=== PATIENT | female | born 1945 | race Caucasian/White ===

== ENCOUNTER 2019-02-05 08:14 | Emergency (ER) | payer MEDICARE, OTHER ==
[~2019-02-05] VITALS: Ht 152.4 cm; Wt 61.8 kg
[2019-02-05 09:07] LABS: BASOPHILS # (AUTO) 0.1 X10'3 (0-0.2); BASOPHILS % (AUTO) 0.9 % (0-1); EOSINOPHILS # (AUTO) 0.1 X10'3 (0-0.9); EOSINOPHILS % (AUTO) 1.5 % (0-6); HEMATOCRIT 43.7 % (35.0-45.0); HEMOGLOBIN 14.9 g/dl (12.0-16.0); LYMPHOCYTES # (AUTO) 1.1 X10'3 (1.1-4.8); LYMPHOCYTES % (AUTO) 13.6 % (21-51); MEAN CORPUSCULAR HEMOGLOBIN 29.5 PG (27.0-31.0); MEAN CORPUSCULAR HGB CONC 34.1 g/dL (33.0-36.5); MEAN CORPUSCULAR VOLUME 86.4 FL (78-98); MEAN PLATELET VOLUME 8.6 FL (7.4-10.4); MONOCYTES # (AUTO) 0.6 X10'3 (0-0.9); MONOCYTES % (AUTO) 7.8 % (2-12); NEUTROPHILS # (AUTO) 6.2 X10'3 (1.8-7.7); NEUTROPHILS % (AUTO) 76.2 % (42-75); PLATELET COUNT 266 X10'3 (140-440); RED BLOOD COUNT 5.06 X10'6 (4.20-5.60); RED CELL DISTRIBUTION WIDTH 13.5 % (11.5-14.5); WHITE BLOOD COUNT 8.1 X10'3 (4.5-11.0)
[2019-02-05 09:21] LABS: PARTIAL THROMBOPLASTIN TIME 25 SECONDS (22-32)
[2019-02-05 09:23] LABS: ALANINE AMINOTRANSFERASE 32 U/L (12-78); ALBUMIN 3.8 G/DL (3.4-5.0); ALBUMIN/GLOBULIN RATIO 1.1 (1.1-1.5); ALKALINE PHOSPHATASE 100 IU/L (46-116); ANION GAP 10 (8-16); ASPARTATE AMINO TRANSFERASE 15 U/L (10-37); BILIRUBIN,TOTAL 0.3 MG/DL (0.1-1.0); BLOOD UREA NITROGEN 15 MG/DL (7-18); BUN/CREATININE RATIO 20.8 (6.6-38.0); CALCIUM 8.9 MG/DL (8.5-10.1); CHLORIDE 107 MMOL/L (99-107); CREATININE 0.72 MG/DL (0.40-0.90); GLUCOSE 91 MG/DL (70-104); POTASSIUM 3.6 MMOL/L (3.5-5.1); SODIUM 146 MMOL/L (135-145); TOTAL CARBON DIOXIDE 29.5 MMOL/L (24-32); TOTAL PROTEIN 7.3 G/DL (6.4-8.2); eGFR 80 ML/MIN
[2019-02-05 09:47] VITALS: BP 130/63
== END 2019-02-05 09:49 | disposition home or self-care (01) ==
LOC: ER 08:15
DX: I10 Essential (primary) hypertension (principal); E11.9 Type 2 diabetes mellitus without complications; Z98.890 Other specified postprocedural states; Z88.2 Allergy status to sulfonamides; Z88.1 Allergy status to other antibiotic agents; Z88.7 Allergy status to serum and vaccine
CPT/HCPCS: 36415; 71045; 80053; 83880; 84484; 85025; 85610; 85730; 93005; 99284

== ENCOUNTER 2019-11-08 07:02 | Day surgery (SDC) | payer MEDICARE, OTHER ==
[2019-11-07 08:15] LABS: BASOPHILS # (AUTO) 0.1 X10'3 (0-0.2); BASOPHILS % (AUTO) 1.2 % (0-1); EOSINOPHILS # (AUTO) 0.2 X10'3 (0-0.9); HEMATOCRIT 44.5 % (35.0-45.0); HEMOGLOBIN 14.5 g/dl (12.0-16.0); LYMPHOCYTES # (AUTO) 0.9 X10'3 (1.1-4.8); LYMPHOCYTES % (AUTO) 17.5 % (21-51); MEAN CORPUSCULAR HEMOGLOBIN 28.9 PG (27.0-31.0); MEAN CORPUSCULAR HGB CONC 32.6 g/dL (33.0-36.5); MEAN CORPUSCULAR VOLUME 88.4 FL (78-98); MEAN PLATELET VOLUME 9.2 FL (7.4-10.4); MONOCYTES # (AUTO) 0.4 X10'3 (0-0.9); MONOCYTES % (AUTO) 7.5 % (2-12); NEUTROPHILS # (AUTO) 3.6 X10'3 (1.8-7.7); NEUTROPHILS % (AUTO) 70.8 % (42-75); PLATELET COUNT 264 X10'3 (140-440); RED BLOOD COUNT 5.03 X10'6 (4.20-5.60); RED CELL DISTRIBUTION WIDTH 13.3 % (11.5-14.5); WHITE BLOOD COUNT 5.1 X10'3 (4.5-11.0)
[2019-11-07 08:19] LABS: ALBUMIN 4.1 G/DL (3.4-5.0); ANION GAP 4 (8-16); BLOOD UREA NITROGEN 14 MG/DL (7-18); BUN/CREATININE RATIO 17.9 (6.6-38.0); CALCIUM 9.7 MG/DL (8.5-10.1); CHLORIDE 108 MMOL/L (99-107); CREATININE 0.78 MG/DL (0.40-0.90); GLUCOSE 77 MG/DL (70-104); POTASSIUM 4.1 MMOL/L (3.5-5.1); SODIUM 144 MMOL/L (135-145); TOTAL CARBON DIOXIDE 32.4 MMOL/L (24-32); eGFR 73 ML/MIN
[2019-11-07 08:23] LABS: PARTIAL THROMBOPLASTIN TIME 25 SECONDS (22-32)
[~2019-11-08] VITALS: Ht 160 cm; Wt 63.9 kg
[2019-11-08] VITALS (13 sets, daily range): BP systolic 94–168; BP diastolic 53–84
[2019-11-08] MEDS ORDERED: diphenhydrAMINE 25mg capsule PO PRN (07:25)
[2019-11-08] MEDS ORDERED: LIDOcaine/PRILOcaine 5gm cream TP ONE (07:25)
[2019-11-08] MEDS ORDERED: LORazepam 0.5 MG tablet PO PRN (07:25)
[2019-11-08] MEDS ORDERED: normal saline 1,000 ML IV SCH (07:25)
[2019-11-08] MEDS ORDERED: LISI30TA4 PO (08:34)
[2019-11-08] MEDS ORDERED: TURMERIC PO (08:34)
[2019-11-08] MEDS ORDERED: VITAMIN B12 PO (08:34)
[2019-11-08] MEDS ORDERED: MAGN250T11 PO (08:34)
[2019-11-08] MEDS ORDERED: CHOL200074 PO (08:34)
[2019-11-08] MEDS ORDERED: OMEG1CAP46 PO (08:34)
[2019-11-08] MEDS ORDERED: PREBIOTIC PO (08:34)
[2019-11-08] MEDS ORDERED: MULT-1085 PO (08:34)
[2019-11-08] MEDS ORDERED: nitroGLYCERIN-Tridil 50MG/D5W 250 ML IV ONE (10:03)
[2019-11-08] MEDS ORDERED: fentaNYL/PF 50MCG/1 ML 2ML syringe ONE (10:04)
[2019-11-08] MEDS ORDERED: iohexol 350 MG/ML 50ML vial IV ONE (10:04)
[2019-11-08] MEDS ORDERED: heparin 1,000unit/ml 10ml vial 10 ML ONE ×2 (10:04→11:21)
[2019-11-08] MEDS ORDERED: iohexol 350MG/ML 100ml bottle IV ONE ×3 (10:04→12:01)
[2019-11-08] MEDS ORDERED: verapamil 2.5 mg/ml inj IV ONE (10:04)
[2019-11-08] MEDS ORDERED: LIDOcaine 1% (10mg/ml)w/preservative injection 20ml MDV ONE (10:04)
[2019-11-08] MEDS ORDERED: midazolam 2 mg/2 ml injection ONE (10:04)
[2019-11-08] MEDS ORDERED: heparin 25,000 UNIT/250ml bag 250 ML IV ONE (11:21)
[2019-11-08] MEDS ORDERED: clopidogrel 300mg tablet ONE (12:16)
[2019-11-08] MEDS ORDERED: heparin 25,000 UNIT/250ml bag 250 ML IV SCH (12:58)
[2019-11-08] MEDS ORDERED: HYDROcodone/acetaminophen 5mg/325mg tablet PO PRN (13:00)
[2019-11-08] MEDS ORDERED: heparin 10,000 units/1 ML INJ IV PRN (13:00)
[2019-11-08] MEDS ORDERED: HYDROcodone/acetaminophen 10/325mg tab PO PRN (13:00)
[2019-11-08] MEDS ORDERED: acetaminophen 325mg tablet PO PRN (13:00)
--- NOTE | 2019-11-08 13:45 | NUR ---
Heparin turned off as ordered. Addendum: 11/08/19 at 1458 by Tod Bravo RN Amended: Links added.
[2019-11-08 15:21] LABS: ISTAT HGB ART 13.3 g/dl (12.0-16.0); ISTAT Hct ART 39 %PCV (35-48); ISTAT O2 SATURATION ARTERIAL 95 % (95-98); ISTAT SOURCE ART
== END 2019-11-08 20:00 | disposition home or self-care (01) ==
LOC: SSTAY O 07:02
PROVIDERS: ATTEND Internal Medicine Cardiovascular Disease
DX: R94.39 Abnormal result of other cardiovascular function study (principal); I25.10 Atherosclerotic heart disease of native coronary artery without angina pectoris; I10 Essential (primary) hypertension; E78.5 Hyperlipidemia, unspecified; K21.9 Gastro-esophageal reflux disease without esophagitis; Z79.899 Other long term (current) drug therapy; Z79.01 Long term (current) use of anticoagulants; Z98.890 Other specified postprocedural states; Z88.8 Allergy status to other drugs, medicaments and biological substances; Z88.7 Allergy status to serum and vaccine; Z91.041 Radiographic dye allergy status; Z83.6 Family history of other diseases of the respiratory system; Z80.9 Family history of malignant neoplasm, unspecified
CPT/HCPCS: 36415; 80048; 82803; 85014; 85025; 85347; 85610; 85730; 93005; 93460; 99152; 99153; C1725; C1751; C1769; C1874; C1894; C9600; J1644; J2001; J2250; J3010; J7030; Q0163; Q9967; A4620; J3490

== ENCOUNTER 2019-11-08 22:14 | Emergency (ER) | payer MEDICARE, OTHER ==
[~2019-11-08] VITALS: Ht 152.4 cm; Wt 62.0 kg
[~2019-11-08 22:14] MED LIST: CHOL200074 PO; LISI30TA4 PO; MAGN250T11 PO; MULT-1085 PO; OMEG1CAP46 PO; PREBIOTIC PO; TURMERIC PO; VITAMIN B12 PO
[2019-11-08] MEDS ORDERED: dexamethasone sod phosphate 10mg/ml inj IM STA (22:38)
[2019-11-08] MEDS ORDERED: famotidine 10mg tablet PO STA (22:38)
[2019-11-08] MEDS ORDERED: diphenhydrAMINE 25mg capsule PO ONE (22:40)
[2019-11-09 00:23] VITALS: BP 188/86
== END 2019-11-09 00:25 | disposition home or self-care (01) ==
LOC: ER 22:15
DX: R21 Rash and other nonspecific skin eruption (principal); I10 Essential (primary) hypertension; E11.9 Type 2 diabetes mellitus without complications; Z98.890 Other specified postprocedural states; Z88.2 Allergy status to sulfonamides; Z88.1 Allergy status to other antibiotic agents; Z88.7 Allergy status to serum and vaccine; Z79.899 Other long term (current) drug therapy
CPT/HCPCS: 96372; 99283; J1100; Q0163

== ENCOUNTER 2020-01-24 08:53 | Day surgery (SDC) | payer MEDICARE, OTHER ==
[2020-01-23 10:17] LABS: BASOPHILS % (AUTO) 0.1 % (0-1); EOSINOPHILS % (AUTO) 0.1 % (0-6); HEMATOCRIT 41.3 % (35.0-45.0); HEMOGLOBIN 13.7 g/dl (12.0-16.0); LYMPHOCYTES # (AUTO) 2.3 X10'3 (1.1-4.8); LYMPHOCYTES % (AUTO) 14.8 % (21-51); MEAN CORPUSCULAR HEMOGLOBIN 29.1 PG (27.0-31.0); MEAN CORPUSCULAR HGB CONC 33.3 g/dL (33.0-36.5); MEAN CORPUSCULAR VOLUME 87.5 FL (78-98); MEAN PLATELET VOLUME 8.7 FL (7.4-10.4); MONOCYTES # (AUTO) 1.1 X10'3 (0-0.9); MONOCYTES % (AUTO) 7.4 % (2-12); NEUTROPHILS # (AUTO) 12.1 X10'3 (1.8-7.7); NEUTROPHILS % (AUTO) 77.6 % (42-75); PLATELET COUNT 269 X10'3 (140-440); RED BLOOD COUNT 4.72 X10'6 (4.20-5.60); RED CELL DISTRIBUTION WIDTH 13.4 % (11.5-14.5); WHITE BLOOD COUNT 15.5 X10'3 (4.5-11.0)
[2020-01-23 10:27] LABS: PARTIAL THROMBOPLASTIN TIME 24 SECONDS (22-32)
[2020-01-23 10:31] LABS: ALBUMIN 4.1 G/DL (3.4-5.0); ANION GAP 6 (8-16); BLOOD UREA NITROGEN 19 MG/DL (7-18); BUN/CREATININE RATIO 22.4 (6.6-38.0); CALCIUM 9.2 MG/DL (8.5-10.1); CHLORIDE 106 MMOL/L (99-107); CREATININE 0.85 MG/DL (0.40-0.90); GLUCOSE 103 MG/DL (70-104); POTASSIUM 3.6 MMOL/L (3.5-5.1); SODIUM 141 MMOL/L (135-145); TOTAL CARBON DIOXIDE 28.7 MMOL/L (24-32); eGFR 66 ML/MIN
[2020-01-24] VITALS (12 sets, daily range): BP systolic 114–142; BP diastolic 55–86
[~2020-01-24] VITALS: Ht 154.9 cm; Wt 63.5 kg
[2020-01-24] MEDS ORDERED: diphenhydrAMINE 25mg capsule PO PRN (09:10)
[2020-01-24] MEDS ORDERED: normal saline 1,000 ML IV SCH (09:10)
[2020-01-24] MEDS ORDERED: LORazepam 0.5 MG tablet PO PRN (09:10)
[2020-01-24] MEDS ORDERED: diphenhydrAMINE 50 mg/ml inj IV PRN (09:10)
[2020-01-24] MEDS ORDERED: hydrocortisone sod succ/PF 100mg/2ml inj. IV PRN (09:15)
[2020-01-24] MEDS ORDERED: CLOP75TA15 PO (09:16)
[2020-01-24] MEDS ORDERED: CARV3.122 PO (09:16)
[2020-01-24] MEDS ORDERED: BIOT25008 PO (09:16)
[2020-01-24] MEDS ORDERED: ASPI-1265 PO (09:16)
[2020-01-24] MEDS ORDERED: OCUVITE PO (09:16)
[2020-01-24] MEDS ORDERED: ATOR20TA PO (09:16)
[2020-01-24] MEDS ORDERED: PRED5TAB PO (09:18)
[2020-01-24] MEDS ORDERED: DIPH25CA83 PO (09:18)
[2020-01-24] MEDS ORDERED: LIDOcaine/PRILOcaine 5gm cream TP ONE (10:15)
[2020-01-24] MEDS ORDERED: fentaNYL/PF 50MCG/1 ML 2ML syringe ONE ×2 (10:26→11:46)
[2020-01-24] MEDS ORDERED: nitroGLYCERIN-Tridil 50MG/D5W 250 ML IV ONE ×3 (10:26→13:29)
[2020-01-24] MEDS ORDERED: midazolam 2 mg/2 ml injection ONE ×3 (10:26→12:35)
[2020-01-24] MEDS ORDERED: verapamil 2.5 mg/ml inj IV ONE ×2 (10:26→12:11)
[2020-01-24] MEDS ORDERED: heparin 1,000unit/ml 10ml vial 10 ML ONE ×2 (10:27→11:46)
[2020-01-24] MEDS ORDERED: iohexol 350MG/ML 100ml bottle IV ONE (10:27)
[2020-01-24] MEDS ORDERED: LIDOcaine 1% (10mg/ml)w/preservative injection 20ml MDV ONE ×2 (10:27→11:46)
[2020-01-24] MEDS ORDERED: iohexol 350 MG/ML 50ML vial IV ONE (10:27)
[2020-01-24] MEDS ORDERED: iohexol 350 MG/1 ML 200ml bottle ONE (11:47)
[2020-01-24] MEDS ORDERED: heparin 25,000 UNIT/250ml bag 250 ML IV ONE (11:50)
[2020-01-24] MEDS ORDERED: clopidogrel 300mg tablet ONE (13:22)
[2020-01-24] MEDS ORDERED: diphenhydrAMINE 50 mg/ml inj ONE (13:24)
[2020-01-24] MEDS ORDERED: nitroGLYCERIN 0.4mg SUBLingual tab SL ONE (13:29)
[2020-01-24] MEDS ORDERED: magnesium hydroxide 30ml (MOM) UD suspension PO PRN (14:05)
[2020-01-24] MEDS ORDERED: proCHLORperazine 10 MG/2 ml inj IV PRN (14:05)
[2020-01-24] MEDS ORDERED: acetaminophen 325mg tablet PO PRN ×2 (14:05)
[2020-01-24] MEDS ORDERED: cyclobenzaprine 10mg tablet PO PRN (14:05)
[2020-01-24] MEDS ORDERED: OXAZEpam 15mg capsule PO PRN (14:05)
[2020-01-24] MEDS ORDERED: HYDROcodone/acetaminophen 10/325mg tab PO PRN ×2 (14:05)
[2020-01-24] MEDS ORDERED: aspirin 81mg tab.chew PO ONE (14:10)
[2020-01-24] MEDS ORDERED: nitroGLYCERIN-Tridil 50MG/D5W 250 ML IV PRN (14:35)
--- NOTE | 2020-01-24 14:40 | NUR ---
Dr. Crespo telephoned. Orders received discharge pt at 1900 pending no deterioration in condition. Additional order received to continue NTG gtt until 1 hour prior to discharge at 1900.
--- NOTE | 2020-01-24 15:40 | NUR ---
Dr. Crespo at bedside. Manual pressure held for 15 minutes, Femostop applied.
[2020-01-24] MEDS ORDERED: diphenhydrAMINE 25mg capsule PO ONE (18:05)
[2020-01-24] MEDS ORDERED: docusate sod 100mg capsule PO SCH (20:00)
[2020-01-25] MEDS ORDERED: clopidogrel 75mg tablet PO SCH (08:00)
[2020-01-25] MEDS ORDERED: aspirin 81mg tab.chew PO SCH (08:00)
== END 2020-01-24 20:00 | disposition home or self-care (01) ==
LOC: SSTAY O 08:53
PROVIDERS: ATTEND Internal Medicine Cardiovascular Disease
DX: I25.10 Atherosclerotic heart disease of native coronary artery without angina pectoris (principal); I10 Essential (primary) hypertension; E78.5 Hyperlipidemia, unspecified; K21.9 Gastro-esophageal reflux disease without esophagitis; Z79.01 Long term (current) use of anticoagulants; Z79.899 Other long term (current) drug therapy; Z79.82 Long term (current) use of aspirin; Z98.890 Other specified postprocedural states; Z98.1 Arthrodesis status; Z88.7 Allergy status to serum and vaccine; Z91.041 Radiographic dye allergy status; Z88.8 Allergy status to other drugs, medicaments and biological substances; Z83.6 Family history of other diseases of the respiratory system; Z80.9 Family history of malignant neoplasm, unspecified
CPT/HCPCS: 36415; 80048; 85025; 85610; 85730; 93005; 99152; 99153; C1725; C1751; C1760; C1769; C1874; C1892; C1894; C9600; J1200; J1644; J2001; J2250; J3010; J7030; Q0163; Q9967; A4620; A5120; A6258; J3490

== ENCOUNTER 2020-09-02 08:16 | Emergency (ER) | payer MEDICARE, OTHER ==
[~2020-09-02] VITALS: Ht 154.9 cm; Wt 62.4 kg
[~2020-09-02 08:16] MED LIST changes: +ASPI-1265 PO; +ATOR20TA PO; +BIOT25008 PO; +CARV3.122 PO; +CLOP75TA15 PO; +DIPH25CA83 PO; +OCUVITE PO; +PRED5TAB PO
--- NOTE | 2020-09-02 09:01 | NUR ---
PT CHANGED INTO GOWN, REPORTS HAVING AN EPISODE OF LIGHTHEADEDNESS THIS MORNING. PT HAS NOT BEEN FEELING WELL LATELY, BRAIN FOG, CANT THINK CLEARLY, LISTLESSNESS. PT BROUGHT HER CHOLESTEROL REPORT WITH HER SHOWING VERY LOW LDL OF 46. WHILE AT CARDIAC REHAB SHE WAS TOLD TO STOP TAKING HER STATIN DUE TO THE LOW LDL. THEN AFTER GOING TO SEE DR SCHNEIDER, THE PA TOLD HER TO RESUME HER STATIN. AT BEDSIDE. PT REPORTS THAT BEFORE HER LEFT HIP PAIN STARTED SHE WAS HAVING PAIN IN HER LEFT LOWER CALF AREA. PT HAS BEEN EXERCISING AT CARDIAC REHAB SO IS WONDERING IF IT IS ALL THE EXERCISING CAUSING THAT PROBLEM.
[2020-09-02 10:14] LABS: ALANINE AMINOTRANSFERASE 34 U/L (12-78); ALBUMIN 3.9 G/DL (3.4-5.0); ALBUMIN/GLOBULIN RATIO 1.2 (1.1-1.5); ALKALINE PHOSPHATASE 102 IU/L (46-116); ANION GAP 10 (8-16); ASPARTATE AMINO TRANSFERASE 22 U/L (10-37); BILIRUBIN,TOTAL 0.3 MG/DL (0.1-1.0); BLOOD UREA NITROGEN 16 MG/DL (7-18); BUN/CREATININE RATIO 22.5 (6.6-38.0); CALCIUM 8.8 MG/DL (8.5-10.1); CHLORIDE 107 MMOL/L (99-107); CREATININE 0.71 MG/DL (0.40-0.90); GLUCOSE 103 MG/DL (70-104); MAGNESIUM 2.4 MG/DL (1.5-2.4); POTASSIUM 4.5 MMOL/L (3.5-5.1); SODIUM 143 MMOL/L (135-145); TOTAL CARBON DIOXIDE 26.3 MMOL/L (24-32); TOTAL PROTEIN 7.2 G/DL (6.4-8.2); eGFR 81 ML/MIN
[2020-09-02 10:22] LABS: BASOPHILS # (AUTO) 0.1 X10'3 (0-0.2); BASOPHILS % (AUTO) 1.1 % (0-1); EOSINOPHILS # (AUTO) 0.2 X10'3 (0-0.9); EOSINOPHILS % (AUTO) 2.7 % (0-6); HEMATOCRIT 42.8 % (35.0-45.0); HEMOGLOBIN 14.3 g/dl (12.0-16.0); LYMPHOCYTES # (AUTO) 1.3 X10'3 (1.1-4.8); LYMPHOCYTES % (AUTO) 15.5 % (21-51); MEAN CORPUSCULAR HEMOGLOBIN 29.6 PG (27.0-31.0); MEAN CORPUSCULAR HGB CONC 33.3 g/dL (33.0-36.5); MEAN CORPUSCULAR VOLUME 88.7 FL (78-98); MEAN PLATELET VOLUME 8.8 FL (7.4-10.4); MONOCYTES # (AUTO) 0.7 X10'3 (0-0.9); MONOCYTES % (AUTO) 8.5 % (2-12); NEUTROPHILS # (AUTO) 6.1 X10'3 (1.8-7.7); NEUTROPHILS % (AUTO) 72.2 % (42-75); PLATELET COUNT 265 X10'3 (140-440); RED BLOOD COUNT 4.82 X10'6 (4.20-5.60); RED CELL DISTRIBUTION WIDTH 13.7 % (11.5-14.5); WHITE BLOOD COUNT 8.4 X10'3 (4.5-11.0)
[2020-09-02 11:19] VITALS: BP 141/58
== END 2020-09-02 11:23 | disposition home or self-care (01) ==
LOC: ER 08:16
DX: M76.32 Iliotibial band syndrome, left leg (principal); M25.552 Pain in left hip; R42 Dizziness and giddiness; R55 Syncope and collapse; R11.0 Nausea; I25.10 Atherosclerotic heart disease of native coronary artery without angina pectoris; E78.00 Pure hypercholesterolemia, unspecified; I10 Essential (primary) hypertension; E11.9 Type 2 diabetes mellitus without complications; Z98.890 Other specified postprocedural states; Z88.2 Allergy status to sulfonamides; Z88.1 Allergy status to other antibiotic agents; Z79.82 Long term (current) use of aspirin; Z79.899 Other long term (current) drug therapy
CPT/HCPCS: 36415; 71045; 80053; 83036; 83735; 84484; 85025; 93005; 99285

== ENCOUNTER 2024-11-15 12:27 | Emergency (ER) | payer MEDICARE, OTHER ==
[~2024-11-15] VITALS: Ht 154.9 cm; Wt 60.4 kg
[~2024-11-15 12:27] MED LIST changes: -DIPH25CA83 PO; -PREBIOTIC PO; -PRED5TAB PO
[2024-11-15 12:29] VITALS: BP 141/72; PULSE 63; RESP 16; TEMP 98.4; O2SAT 97
--- NOTE | 2024-11-15 12:39 | ELECTROCARDIOGRAPH REPORT ---
[facility] Test Date: 2024-11-15 Test Time: 12:37:09 Pat Name: LILO CASTILLO Department: EMERGENCY ROOM Room: Gender: F Instructor Extension Work: : 1945 Requested By: KIKI BRUCE Order Number: [id number] Reading MD: Measurements Intervals [place] Rate: 66 P: 51 CT: 143 QRS: 63 QRSD: 153 T: 16 QT: 433 QTc: 454 Interpretive Statements Sinus rhythm Right bundle branch block Inferior infarct, old Please click the below link to view image of tracing.
--- NOTE | 2024-11-15 13:00 | RADIOLOGY REPORT ---
EXAM: DI CHEST,SINGLE VIEW HISTORY: CP COMPARISON: CHEST,SINGLE VIEW on DOS: 09/02/20 TECHNIQUE: Portable AP view of the chest was performed. FINDINGS: No pneumothorax, consolidative infiltrates, or pulmonary edema. The heart is not enlarged. There are postoperative changes of the cervical spine, not fully imaged here. IMPRESSION: No acute intrathoracic process.
[2024-11-15 13:15] LABS: MEAN PLATELET VOLUME 9.4 FL (7.4-10.4); RED CELL DISTRIBUTION WIDTH 13.8 % (11.5-14.5)
[2024-11-15 13:37] LABS: CREATININE 0.79 MG/DL (0.40-0.90); PRO BRAIN NATRIURETIC PEPTIDE 37 PG/ML (0-450); TOTAL CARBON DIOXIDE 29.0 MMOL/L (24-32); eCRCL 45 ML/MIN; eGFR 71 ML/MIN
--- NOTE | 2024-11-15 15:41 | Physician Documentation ---
History of Present Illness ~ Chief Complaint: Cough Stated Complaint: COUGH Time Seen by MD: 14:58 Primary Medical Doctor: WYATT Velazquez [facility] Patient is seen today with complaints of a cough that started about six weeks ago. Patient states she was treated with 20 days of Augmentin and had multiple chest x-rays with the 1st two of them showing signs of pneumonia. The 2nd x-ray taken 10 days after she finished the 1st course of Augmentin she was told she likely had viral pneumonia but patient states she was given another 10 days of Augmentin. Patient currently denies any shortness of breath or chest pain or abdominal pain or nausea, vomiting, diarrhea. Patient states her cough is kind of a dry cough in his worse at night when she lays down. Patient admits to previous cardiac stenting by Dr. Corona over a year ago and states she follows up with him regularly. Patient states she does take lisinopril 40 mg in the morning and 20 mg at night. Patient has no other concern or complaint at this time. Medication Reconciliation Allergies: Coded Allergies: Sulfa (Sulfonamide Antibiotics) (Unverified Allergy, Unknown, 02/05/19) erythromycin base (Unverified Allergy, Unknown, 02/05/19) tetanus and diphtheria toxoids (Unverified Allergy, Unknown, 02/05/19) Uncoded Allergies: IV CONTRAST DYE (Allergy, Unknown, 11/08/19) Scheduled Aspirin (Aspirin), 1 TAB PO DAILY, (Reported) Atorvastatin Calcium (Lipitor), 1 TAB PO DAILY, (Reported) Biotin (Biotin), 1 CAP PO DAILY, (Reported) Carvedilol (Carvedilol), 1 TAB PO Q12H, (Reported) Cholecalciferol (Vitamin D3) (Vitamin D3), 1 CAP PO DAILY, (Reported) Clopidogrel Bisulfate (Plavix), 1 TAB PO DAILY, (Reported) Lisinopril (Lisinopril), 1 TAB PO DAILY, (Reported) Magnesium Oxide (Magnesium), 1 TAB PO DAILY, (Reported) Multivitamin (Multi Vitamin Daily), 1 TAB PO DAILY, (Reported) [place]-3 Fatty Acids/Fish Oil ([place] 3 1,000 mg Softgel), 1 CAP PO DAILY, (Reported) [Turmeric], 1,053 MG PO DAILY, (Reported) [Vitamin B12], 1,000 MCG PO DAILY, (Reported) Miscellaneous Medications Beta-Carotene(A) W-C & E/Min (Ocuvite), 1 EACH PO, (Reported) Past Medical History Past Medical History: Vertigo, Coronary Artery Disease, High Cholesterol, Hypertension, Bowel Obstruction, Diabetes Past Surgical History: abdominal surgery, angioplasty, orthopedic surgeries Drug Use: none Lives with: Spouse Lives In: Home Review of Systems Constitutional: Denies: chills, fever, weakness Eyes: Denies: pain, blurred vision ENT: Denies: ear pain, nose pain, throat pain, mouth pain Respiratory: Denies: cough, shortness of breath Cardiovascular: Denies: chest pain, palpitations Gastrointestinal: Denies: abdominal pain, nausea, vomiting Genitourinary: Denies: burning, dysuria Female Genitalia: Denies: vaginal discharge, pelvic pain Neurological: Denies: headache, dizziness Musculoskeletal: Denies: pain, swelling Integumentary: Denies: rash, lesions Allergic/Immunologic: Denies: hives, itching Hematologic/Lymphatic: Denies: no symptoms reported Psychiatric: Denies: depression, anxiety Physical Exam Vital Signs: Temperature: 98.4, Source: Oral, Heart Rate: 63, Respiratory Rate: 16, BP: 141/72, Pulse Oximetry: 97, Weight: 60.400 Oxygen Flow Rate: 0 Physical Exam General: Awake and Alert, no acute distress. HEENT: Conjunctiva pink, Sclera clear, Mucus Membranes moist. Neck: Supple without masses and tenderness. Resp: Unlabored. Lungs clear to auscultation bilaterally. Heart: Regular Rate and rhythm, normal S1 and S2 without murmur, rub or gallop. Abdomen: Soft and non tender no organomegaly Extremities: No cyanosis,clubbing or edema. Skin: Warm and Dry. Progress Results/Orders Results/Orders Orders - TIM MCKAY PAC Pertussis Pcr (11/15/24 14:57) Vital Signs 11/15/24 12:29 Temp 98.4 Pulse 63 Resp 16 B/P (MAP) 141/72 Pulse Ox 97 O2 Flow Rate 0 Laboratory Tests Test 11/15/24 12:37 11/15/24 14:37 White Blood Count 7.1 Red Blood Count 4.83 Hemoglobin 14.2 Hematocrit 42.0 Mean Corpuscular Volume 86.9 Mean Corpuscular Hemoglobin 29.4 Mean Corpuscular Hemoglobin Concent 33.8 Red Cell Distribution Width 13.8 Platelet Count 234 Mean Platelet Volume 9.4 Neutrophils (%) (Auto) 64.3 Lymphocytes (%) (Auto) 23.5 Monocytes (%) (Auto) 8.1 Eosinophils (%) (Auto) 3.2 Basophils (%) (Auto) 0.9 Neutrophils # (Auto) 4.5 Lymphocytes # (Auto) 1.7 Monocytes # (Auto) 0.6 Eosinophils # (Auto) 0.2 Basophils # (Auto) 0.1 CBC Comment Sodium Level 142 Potassium Level 3.5 Chloride Level 103 Carbon Dioxide Level 29.0 Anion Gap 10 Blood Urea Nitrogen 20 H Creatinine 0.79 Estimated GFR/1.73 m2 71 BUN/Creatinine Ratio 25.3 H Glucose Level 117 H Calcium Level 9.6 Troponin I High Sensitivity 7 8 Pro-B-Type Natriuretic Peptide 37 Albumin 3.9 Chemistry Comments Troponin I High Sens Percent Delta 14 Troponin I Hi Sens Absolute Change 1 EKG/XRAY/CT/US/VASC/MRI Chest X-Ray : Additional Comments Chest x-ray interpreted by myself today shows no large infiltrate, no large effusion, normal mediastinum. DIAGNOSTIC RADIOLOGY Patient: LILO CASTILLO Medical Record: [id number] [facility] : 1945, Age: 78 Sex: Female Location: ER Patient Status: REG ER Service Date/Time: 11/15/241231 Ordering Physician: KIKI BRUCE DO Exam: CHEST,SINGLE VIEW EXAM: DI CHEST,SINGLE VIEW HISTORY: CP COMPARISON: CHEST,SINGLE VIEW on DOS: 09/02/20 TECHNIQUE: Portable AP view of the chest was performed. FINDINGS: No pneumothorax, consolidative infiltrates, or pulmonary edema. The heart is not enlarged. There are postoperative changes of the cervical spine, not fully imaged here. IMPRESSION: No acute intrathoracic process. Electronically Signed by:JAMI DONNELLY MD Date & Time: 11/15/24 1257 Dictated by: JAMI DONNELLY MD Dictation date and time: 11/15/24 1257 Primary Care Provider: NO PRIMARY CARE PROVIDER cc: KIKI BRUCE DO ~ Medical Decision Making Findings Patient is seen today with complaints of a cough that started about six weeks ago. Patient states she was treated with 20 days of Augmentin and had multiple chest x-rays with the 1st two of them showing signs of pneumonia. The 2nd x-ray taken 10 days after she finished the 1st course of Augmentin she was told she likely had viral pneumonia but patient states she was given another 10 days of Augmentin. Patient currently denies any shortness of breath or chest pain or abdominal pain or nausea, vomiting, diarrhea. Patient states her cough is kind of a dry cough in his worse at night when she lays down. Patient admits to previous cardiac stenting by Dr. Corona over a year ago and states she follows up with him regularly. Patient states she does take lisinopril 40 mg in the morning and 20 mg at night. Patient has no other concern or complaint at this time. Patient labs showed no sign of heart failure and troponin negative and pro BNP negative, labs were largely unremarkable. Chest x-ray was clear. Patient will discontinue lisinopril and prescription of losartan 50 mg twice a day sent to patient's pharmacy and patient will follow up with primary care as soon as possible and/or follow up with her assistant pressman. Return to ED with any worsening, concerning or changing symptoms. Departure Disposition: 01 HOME / SELF CARE / HOMELESS Impression: Primary Impression: AYAZ-inhibitor cough Condition: Stable Discharge Instructions: Cough, Adult Additional Instructions: Patient labs showed no sign of heart failure and troponin negative and pro BNP negative, labs were largely unremarkable. Chest x-ray was clear. Patient will discontinue lisinopril and prescription of losartan 50 mg twice a day sent to patient's pharmacy and patient will follow up with primary care as soon as possible and/or follow up with her assistant pressman. Return to ED with any worsening, concerning or changing symptoms. Referrals: NO PRIMARY CARE PROVIDER (PCP) Prescriptions Losartan Potassium (Losartan Potassium) 50 Mg Tablet 1 TAB PO BID for 30 Days, #60 TAB 0 Refills Prov: TIM MCKAY PAC 11/15/24 Signature Scribe Signature: No scribe Attestation: No scribe TIM MCKAY PAC Nov 15, 2024 15:41
[2024-11-15] MEDS ORDERED: LOSA50TA64 PO (15:49)
== END 2024-11-15 16:00 | disposition home or self-care (01) ==
LOC: ER 12:28
DX: R05.9 Cough, unspecified (principal); R06.02 Shortness of breath; E11.9 Type 2 diabetes mellitus without complications; E78.00 Pure hypercholesterolemia, unspecified; I10 Essential (primary) hypertension; I25.10 Atherosclerotic heart disease of native coronary artery without angina pectoris; Z88.1 Allergy status to other antibiotic agents; Z88.2 Allergy status to sulfonamides; Z88.8 Allergy status to other drugs, medicaments and biological substances; Z79.82 Long term (current) use of aspirin
CPT/HCPCS: 36415; 71045; 80048; 83880; 84484; 85025; 93005; 99285

== ENCOUNTER 2024-11-21 01:14 | Emergency (ER) | payer MEDICARE, OTHER ==
[~2024-11-21] VITALS: Ht 154.9 cm; Wt 62.8 kg
[~2024-11-21 01:14] MED LIST changes: +LOSA50TA64 PO
--- NOTE | 2024-11-21 01:34 | Physician Documentation ---
History of Present Illness ~ Chief Complaint: Chest Pain Stated Complaint: HIGH BP Time Seen by MD: 01:33 [facility] to the emergency room for evaluation of blood pressure and chest discomfort. History of stents. Patient states she woke up tonight to let her dog out and felt a little unusual which prompted her to take her blood pressure and stated that he was very high in the 180s she became concerned, took some lisinopril and felt she needed to be evaluated. Just discomfort is exacerbated with palpation. Medication Reconciliation Allergies: Coded Allergies: Sulfa (Sulfonamide Antibiotics) (Unverified Allergy, Unknown, 02/05/19) erythromycin base (Unverified Allergy, Unknown, 02/05/19) tetanus and diphtheria toxoids (Unverified Allergy, Unknown, 02/05/19) Uncoded Allergies: IV CONTRAST DYE (Allergy, Unknown, 11/08/19) Scheduled Aspirin (Aspirin), 1 TAB PO DAILY, (Reported) Atorvastatin Calcium (Lipitor), 1 TAB PO DAILY, (Reported) Biotin (Biotin), 1 CAP PO DAILY, (Reported) Carvedilol (Carvedilol), 1 TAB PO Q12H, (Reported) Cholecalciferol (Vitamin D3) (Vitamin D3), 1 CAP PO DAILY, (Reported) Clopidogrel Bisulfate (Plavix), 1 TAB PO DAILY, (Reported) Lisinopril (Lisinopril), 1 TAB PO DAILY, (Reported) Losartan Potassium (Losartan Potassium), 1 TAB PO BID Magnesium Oxide (Magnesium), 1 TAB PO DAILY, (Reported) Multivitamin (Multi Vitamin Daily), 1 TAB PO DAILY, (Reported) [place]-3 Fatty Acids/Fish Oil ([place] 3 1,000 mg Softgel), 1 CAP PO DAILY, (Reported) [Turmeric], 1,053 MG PO DAILY, (Reported) [Vitamin B12], 1,000 MCG PO DAILY, (Reported) Miscellaneous Medications Beta-Carotene(A) W-C & E/Min (Ocuvite), 1 EACH PO, (Reported) Past Medical History Past Medical History: Vertigo, Coronary Artery Disease, High Cholesterol, Hypertension, Bowel Obstruction, Diabetes Past Surgical History: abdominal surgery, angioplasty, orthopedic surgeries Drug Use: none Lives with: Spouse Lives In: Home Review of Systems ROS All review of systems negative except as per HPI Physical Exam Vital Signs: Temperature: 97.8, Source: Oral, Heart Rate: 55, Respiratory Rate: 16, BP: 151/84, Pulse Oximetry: 99, Weight: 62.750 Oxygen Flow Rate: 0 Physical Exam General: Patient is awake, alert, oriented x4 in no acute distress, anxious Head: Normocephalic and atraumatic. Eyes: Conjunctival normal. EOMI. PERRL. ENT: Mucous membranes moist. Neck: Supple, trachea is midline. Chest: Clear to auscultation bilaterally without rales, rhonchi, or wheezes. There is no accessory muscle use or retractions. Cardiac: Bradycardic and regular without murmurs, gallops, or rubs. Abd: Soft, nondistended, nontender, with normoactive bowel sounds. No guarding, rebound, or rigidity. Extremities: Normal strength. Normal range of motion. No deformities or edema. No calf tenderness to palpation Progress Results/Orders Results/Orders Orders - ALEX LANGE MD Chest,Single View (11/21/24 02:39) Monitor (11/21/24 01:28) Saline Lock (11/21/24 01:28) Oxygen (11/21/24 01:28) Hs Troponin I W Calculations (11/21/24 04:28) Completed Orders - ALEX LANGE MD Chest,Single View (11/21/24 02:39) Cbc/Diff (11/21/24 01:28) BMP (11/21/24 01:28) PBNP (11/21/24 01:28) Electrocardiogram (11/21/24 01:28) Hs Troponin I W Calculations (11/21/24 01:28) Hs Troponin I W Calculations (11/21/24 03:28) Vital Signs 11/21/24 11/21/24 11/21/24 01:21 01:50 01:52 Temp 97.8 Pulse 55 61 Resp 16 17 B/P (MAP) 151/84 154/97 (116) Pulse Ox 99 98 O2 Flow Rate 0 Laboratory Tests Test 11/21/24 01:35 11/21/24 03:10 White Blood Count 6.9 Red Blood Count 4.74 Hemoglobin 13.8 Hematocrit 40.7 Mean Corpuscular Volume 85.8 Mean Corpuscular Hemoglobin 29.1 Mean Corpuscular Hemoglobin Concent 33.9 Red Cell Distribution Width 13.7 Platelet Count 211 Mean Platelet Volume 9.2 Neutrophils (%) (Auto) 51.9 Lymphocytes (%) (Auto) 29.5 Monocytes (%) (Auto) 10.9 Eosinophils (%) (Auto) 6.8 H Basophils (%) (Auto) 0.9 Neutrophils # (Auto) 3.6 Lymphocytes # (Auto) 2.0 Monocytes # (Auto) 0.8 Eosinophils # (Auto) 0.5 Basophils # (Auto) 0.1 CBC Comment Sodium Level 138 Potassium Level 3.7 Chloride Level 102 Carbon Dioxide Level 29.1 Anion Gap 7 L Blood Urea Nitrogen 15 Creatinine 0.75 Estimated GFR/1.73 m2 75 BUN/Creatinine Ratio 20.0 Glucose Level 124 H Calcium Level 9.1 Troponin I High Sensitivity 10 10 Pro-B-Type Natriuretic Peptide 41 Albumin 3.7 Chemistry Comments Troponin I High Sens Percent Delta 0 Troponin I Hi Sens Absolute Change 0 Medical Decision Making Findings Patient's blood pressure greatly improved. Patient presented to the emergency room with concerns of her blood pressure and some degree of chest discomfort. Differentials include but are not limited to ACS, hypertensive emergency, uncontrolled hypertension, anxiety, musculoskeletal pain, pneumothorax therefore emergent labs and imaging ordered. Chest x-ray is reassuring as are troponins. Patient's blood pressure has improved spontaneously. Chest pain is exacerbated with palpation in his considered atypical. Although patient has has been an elevated heart score of four and he had not feel her chest discomfort that has related to ACS or other chest wall pain. Patient is more concerned about a blood pressure and had long discussion with her regarding elevated blood pressures and how to manage them and to follow up with her doctor for any medication adjustments. Departure Disposition: HOME / SELF CARE / HOMELESS Impression: Primary Impression: Tenderness of chest wall Condition: Stable Discharge Instructions: Chest Wall Pain Referrals: NO PRIMARY CARE PROVIDER (PCP) Signature Scribe Signature: No scribe Attestation: The note accurately reflects work and decisions made by me.Alex Lange MD 11/21/24 03:39 ALEX LANGE MD Nov 21, 2024 01:34
--- NOTE | 2024-11-21 01:44 | ELECTROCARDIOGRAPH REPORT ---
[facility] Test Date: 2024-11-21 Test Time: 01:42:14 Pat Name: LILO CASTILLO Department: [facility]-ER Patient ID: [id number] Room: Gender: F Edi Developer: : 1945 Requested By: ANH LANGE Order Number: [id number] Reading MD: Measurements Intervals [place] Rate: 56 P: 60 HI: 165 QRS: 27 QRSD: 156 T: 37 QT: 443 QTc: 428 Interpretive Statements Sinus bradycardia Right bundle branch block Please click the below link to view image of tracing.
[2024-11-21 01:48] LABS: MEAN PLATELET VOLUME 9.2 FL (7.4-10.4); RED CELL DISTRIBUTION WIDTH 13.7 % (11.5-14.5)
[2024-11-21 01:50] VITALS: BP_DIAS 97
[2024-11-21 02:03] LABS: CREATININE 0.75 MG/DL (0.40-0.90); PRO BRAIN NATRIURETIC PEPTIDE 41 PG/ML (0-450); TOTAL CARBON DIOXIDE 29.1 MMOL/L (24-32); eCRCL 47 ML/MIN; eGFR 75 ML/MIN
--- NOTE | 2024-11-21 03:02 | RADIOLOGY REPORT ---
CHEST RADIOGRAPH Indication: CP Technique: Single frontal view of the chest was obtained COMPARISON: DI CHEST,SINGLE VIEW on DOS: 11/15/24, CHEST,SINGLE VIEW on DOS: 09/02/20 FINDINGS: Lines and Tubes: None Lungs: Clear Pleura: No effusion. No pneumothorax. Cardiomediastinal contours: Unremarkable Bones: Unremarkable IMPRESSION: 1. No acute disease.
[2024-11-21 04:36] VITALS: BP_SYST 130; PULSE 87; RESP 15; TEMP 97.8; O2SAT 100
== END 2024-11-21 04:37 | disposition home or self-care (01) ==
LOC: ER 01:15
DX: R07.89 Other chest pain (principal); R06.02 Shortness of breath; E11.9 Type 2 diabetes mellitus without complications; E78.00 Pure hypercholesterolemia, unspecified; I10 Essential (primary) hypertension; I25.10 Atherosclerotic heart disease of native coronary artery without angina pectoris; Z88.1 Allergy status to other antibiotic agents; Z88.2 Allergy status to sulfonamides; Z88.8 Allergy status to other drugs, medicaments and biological substances; Z79.82 Long term (current) use of aspirin
CPT/HCPCS: 36415; 71045; 80048; 83880; 84484; 85025; 93005; 99285